=== PATIENT | male | born 1975 | race African-American/Black ===

== ENCOUNTER 2018-11-03 16:35 | Emergency (ER) | payer SELFPAY ==
[~2018-11-03] VITALS: Ht 177.8 cm; Wt 59.0 kg
[~2018-11-03 16:35] MED LIST: BUTA1CAP29 PO
[2018-11-03 16:45] VITALS: BP 176/105
--- NOTE | 2018-11-03 18:50 | RAD ---
PQRS Compliance statement: One or more of the following individualized dose reduction techniques were utilized for this examination: 1. Automated exposure control. 2. Adjustment of the mA and/or kV according to patient size. 3. Use of iterative reconstruction technique. INDICATION: Fall 1 week ago with increasing back pain. TECHNIQUE: CT of the thoracic spine without IV contrast with multiplanar reformats COMPARISON: None FINDINGS: Thoracic spine is in normal anatomic alignment. No compression deformity. Facet joints are in normal anatomic alignment. No intervertebral disc space narrowing or productive changes. Visualized lungs are clear. Nondisplaced fracture is seen of the medial aspect of the right seventh, eighth, ninth, 10th ribs. IMPRESSION: Nondisplaced to minimally displaced fractures of the right ribs as described above. Electronically signed by: Abundio Aldana DO (11/03/2018 6:47 PM) [facility]
[2018-11-03] MEDS ORDERED: HYDR-3164 PO (19:14)
[2018-11-03] MEDS ORDERED: NAPR500T8 PO (19:14)
[2018-11-03] MEDS ORDERED: CYCL10TA2 PO (19:14)
--- NOTE | 2018-11-03 19:15 | PHYS DOC ---
Past Medical History Past Medical History: Alcoholism Past Surgical History: Other Additional Past Surgical Histo: UNKNOWN CRANIAL SURGERY AFTER A FALL @ 4YO Alcohol Use: Heavy Drug Use: Marijuana Adult General Chief Complaint Chief Complaint: MECHANICAL FALL HPI HPI Patient is a 43 year old male who presents to the ED today complaining of 9 out of 10 right mid back pain that began on Wednesday last week which is almost a week ago after he fell down 10 steps. Patient states he was playing with his children, he states he lost footing while playing and fell down roughly 10 steps. Patient denies loss of consciousness though he states is not sure about this. He states he was able to get up and get help right away. Patient states his pain is worse on palpation of the area, laying in certain positions and intermittently on deep breaths. Patient denies any headache. Denies any shortness of breath. Denies any low back pain, denies any neck pain, denies being on any anticoagulants. Patient denies any hematuria. Denies any loss of bowel bladder function. Denies any pain radiating to bilateral lower extremities. Review of Systems Review of Systems Constitutional: Denies fever or chills [] Eyes: Denies change in visual acuity, redness, or eye pain [] HENT: Denies nasal congestion or sore throat [] Respiratory: Denies cough or shortness of breath [] Cardiovascular: No additional information not addressed in HPI [] GI: Denies abdominal pain, nausea, vomiting, bloody stools or diarrhea [] : Denies dysuria or hematuria [] Musculoskeletal: Reports mid back pain Integument: Denies rash or skin lesions [] Neurologic: Denies headache, focal weakness or sensory changes [] All other systems were reviewed and found to be within normal limits, except as documented in this note. Allergies Allergies Allergies Coded Allergies Type Severity Reaction Last Updated Verified No Known Drug Allergies 12/25/13 No Physical Exam Physical Exam Constitutional: Well developed, well nourished, no acute distress, non-toxic appearance. [] HENT: Normocephalic, atraumatic, bilateral external ears normal, oropharynx moist, no oral exudates, nose normal. [] Eyes: PERRLA, EOMI, conjunctiva normal, no discharge. [] Neck: Normal range of motion, no tenderness, supple, no stridor. [] Cardiovascular:Heart rate regular rhythm, no murmur [] Lungs & Thorax: Tenderness on palpation of the right lateral ribs roughly from 6 through 11. Bilateral breath sounds clear to auscultation [] Abdomen: Bowel sounds normal, soft, no tenderness, no masses, no pulsatile masses. [] Skin: Warm, dry, no erythema, no rash. [] Back: Lumbar spine, thoracic spine, no deformity, paraspinal muscle tenderness on palpation of the right thoracic spine, slight midline thoracic spine tenderness no CVA tenderness. [] Extremities: No tenderness, no cyanosis, no clubbing, ROM intact, no edema. [] Neurologic: Alert and oriented X 3, normal motor function, normal sensory function, no focal deficits noted. Cranial nerves II through XII intact Psychologic: Affect normal, judgement normal, mood normal. [] Current Patient Data Vital Signs Vital Signs Date Time Temp Pulse Resp B/P (MAP) Pulse Ox O2 Delivery O2 Flow Rate FiO2 11/03/18 16:45 98.6 62 16 176/105 (128) 98 Room Air 98.6 EKG EKG [] Radiology/Procedures Radiology/Procedures []PROCEDURE: CT THORACIC SPINE WO CONTRAST PQRS Compliance statement: One or more of the following individualized dose reduction techniques were utilized for this examination: 1. Automated exposure control. 2. Adjustment of the mA and/or kV according to patient size. 3. Use of iterative reconstruction technique. INDICATION: Fall 1 week ago with increasing back pain. TECHNIQUE: CT of the thoracic spine without IV contrast with multiplanar reformats COMPARISON: None FINDINGS: Thoracic spine is in normal anatomic alignment. No compression deformity. Facet joints are in normal anatomic alignment. No intervertebral disc space narrowing or productive changes. Visualized lungs are clear. Nondisplaced fracture is seen of the medial aspect of the right seventh, eighth, ninth, 10th ribs. IMPRESSION: Nondisplaced to minimally displaced fractures of the right ribs as described above. Electronically signed by: Abundio Parada DO (11/03/2018 6:47 PM) [facility] DICTATED and SIGNED BY: ABUNDIO PARADA DO DATE: 11/03/181840 Course & Med Decision Making Course & Med Decision Making Pertinent Labs and Imaging studies reviewed. (See chart for details) This is a 43-year-old male patient presented to the ED today with mid back pain status post falling 6 days ago. Thoracic spine CT is noted for -nondisplaced to minimally displaced fractures of the right ribs as right seventh, eighth, ninth , 10th ribs. Patient was discharged with incentive spirometry. Discharged on hydrocodone and naproxen for pain. Follow-up with PCP in one week. Jakeon Disclaimer Dragon Disclaimer This electronic medical record was generated, in whole or in part, using a voice recognition dictation system. Departure Departure Impression: Primary Impression: Fall down steps Additional Impression: Multiple rib fractures Disposition: 01 HOME, SELF-CARE Condition: STABLE Referrals: NO PCP (PCP) Follow-up with your doctor in one week Patient Instructions: Rib Fracture, [id number] Additional Instructions: You were evaluated in the emergency room and noted to have broken your right ribs number 7, 8, 9, 10. We highly encourage you to use the incentive spirometry provided and take deep breaths 10 times every hour. Take the prescribed medications as needed for pain. Ice elevate the affected area. Scripts Naproxen (NAPROXEN) 500 Mg Tablet.dr 1 TAB PO BID, #60 TAB 1 Refill Prov: DARIANA TOBIN APRN 11/03/18 Cyclobenzaprine Hcl (CYCLOBENZAPRINE HCL) 10 Mg Tablet 1 TAB PO TID, #30 TAB Prov: DARIANA TOBIN APRN 11/03/18 Hydrocodone/Apap 5-325 (NORCO 5-325 TABLET) 1 Each Tablet 1 TAB PO Q6HRS, #20 TAB Prov: DARIANA TOBIN APRN 11/03/18 Problem Qualifiers Primary Impression: Fall down steps Encounter type: initial encounter Qualified Codes: W10.8XXA - Fall (on) ( from) other stairs and steps, initial encounter Additional Impression: Multiple rib fractures Encounter type: initial encounter Fracture type: closed Laterality: right Qualified Codes: S22.41XA - Multiple fractures of ribs, right side, initial encounter for closed fracture DARIANA TOBIN APRN Nov 03, 2018 19:15
== END 2018-11-03 19:45 | disposition home or self-care (01) ==
LOC: ER 16:35
DX: S22.41XA Multiple fractures of ribs, right side, initial encounter for closed fracture (principal); W10.8XXA Fall (on) (from) other stairs and steps, initial encounter; Y93.89 Activity, other specified; Y92.89 Other specified places as the place of occurrence of the external cause; Y99.8 Other external cause status
CPT/HCPCS: 72128; 99284